=== PATIENT | female | born 1985 | race Two or more races ===

== ENCOUNTER 2022-12-09 21:31 | Emergency (ER) | payer MEDICAID ==
[~2022-12-09] VITALS: Ht 160 cm; Wt 55.3 kg
[2022-12-09 21:31] VITALS: BP 106/68; TEMP 98.1; O2SAT 100
[2022-12-09] MEDS ORDERED: IBUP-1955 PO (22:19)
[2022-12-09] MEDS ORDERED: DICL1KIT14 TP (22:20)
[2022-12-09] MEDS ORDERED: KETOROLAC TROMETHAMINE INJ 30 MG/ML VIAL ONE (22:24)
[2022-12-09] MEDS ORDERED: KETOROLAC TROMETHAMINE INJ 30 MG/ML VIAL IM ONE (22:30)
== END 2022-12-09 22:35 | disposition home or self-care (01) ==
LOC: ER 21:35
DX: M54.6 Pain in thoracic spine (principal); M25.511 Pain in right shoulder; M25.512 Pain in left shoulder; V43.62XA Car passenger injured in collision with other type car in traffic accident, initial encounter; Y93.89 Activity, other specified; Y92.89 Other specified places as the place of occurrence of the external cause; Y99.8 Other external cause status
CPT/HCPCS: 99283; 96372; J1885